=== PATIENT | female | born 1990 | race African-American/Black ===

== ENCOUNTER 2023-10-31 17:27 | Emergency (ER) | payer BC, MEDICAID ==
[~2023-10-31] VITALS: Ht 160 cm; Wt 81.6 kg
[2023-10-31 17:57] VITALS: BP 135/76; PULSE 82; RESP 14; TEMP 98.6; O2SAT 100
[2023-10-31 19:59] LABS: BASOPHILS % 0.9 % (0.0-2.0); EOSINOPHILS % 1.7 % (0.0-5.0); HEMATOCRIT. 40.9 % (36.0-48.0); LYMPHOCYTES % 48.1 % (20.0-50.0); MEAN CORPUSCULAR HEMOGLOBIN 31.6 pg (28.0-32.0); MEAN CORPUSCULAR HGB CONC 34.2 g/dL (31.0-37.0); MEAN CORPUSCULAR VOLUME 92.5 fL (81.0-99.0); MEAN PLATELET VOLUME 7.6 fl (7.4-10.4); MONOCYTES % 9.6 % (2.0-8.0); NEUTROPHILS % 39.7 % (40.0-76.0); PLATELET 428 x1000/uL (130-400); RED BLOOD CELL COUNT 4.43 mill/uL (4.2-5.4); RED CELL DISTRIBUTION WIDTH 12.6 % (11.6-14.6); WHITE BLOOD COUNT 6.9 x1000/uL (4.5-11.0)
[2023-10-31 20:14] LABS: ALANINE AMINOTRANSFERASE 35 IU/L (10-49); ALBUMIN 4.9 g/dL (3.2-4.8); ASPARTATE AMINOTRANSFERASE 22 IU/L (<34); BILIRUBIN TOTAL 0.2 mg/dL (0.1-1.0); CALCIUM 9.6 mg/dL (8.7-10.4); CARBON DIOXIDE 27 mEq/L (21-32); CHLORIDE 106 mEq/L (98-107); CREATININE 0.9 mg/dL (0.6-1.0); GLUCOSE 90 mg/dL (70-105); POTASSIUM 4.2 mEq/L (3.5-5.1); PROTEIN TOTAL 8.3 g/dL (6.0-8.3); SODIUM 139 mEq/L (136-145); UREA NITROGEN BLOOD 6 mg/dL (9-23)
[2023-10-31] MEDS: KETOROLAC 15MG/ML VIAL IM ONE (21:51)
[2023-10-31 22:03] LABS: CLARITY URINE CLOUDY (CLEAR); COLOR URINE YELLOW (YELLOW); GLUCOSE URINE NEGATIVE (NEGATIVE); KETONES URINE NEGATIVE (NEGATIVE); LEUKOCYTE ESTERASE URINE 1+ (NEGATIVE); NITRITE URINE NEGATIVE (NEGATIVE); OCCULT BLOOD URINE 3+ (NEGATIVE); PH URINE 5.5 (4.5-8.0); PROTEIN URINE TRACE (NEGATIVE); SPECIFIC GRAVITY URINE 1.018 (1.005-1.030); UROBILINOGEN URINE 0.2 E.U./dL (0.2-1.0)
[2023-10-31] MEDS ORDERED: LIDO700A15 TP (22:03)
[2023-10-31] MEDS ORDERED: NAPR-1176 MT (22:03)
[2023-10-31 22:22] LABS: BACTERIA URINE 2+; SQUAMOUS EPITHELIAL CELL URINE 2+ /lpf (RARE/1+)
== END 2023-10-31 22:22 | disposition home or self-care (01) ==
LOC: ER 17:27
DX: M54.9 Dorsalgia, unspecified (principal); K80.20 Calculus of gallbladder without cholecystitis without obstruction
CPT/HCPCS: 80053; 81003; 81025; 85025; 36415; 76705; 96372; 99285; J1885; Z7610

== ENCOUNTER 2024-05-28 21:34 | Emergency (ER) | payer BC, MEDICAID ==
[~2024-05-28] VITALS: Ht 160 cm; Wt 82.0 kg
[~2024-05-28 21:34] MED LIST: LIDO700A15 TP; NAPR-1176 MT
[2024-05-28 21:46] VITALS: O2SAT 100
[2024-05-28] MEDS ORDERED: MORPHINE SULFATE 4 MG/ML INJ (FOR IV/IM USE) IV STA (21:57)
[2024-05-28 22:26] VITALS: TEMP 37.11408
[2024-05-28] MEDS: SODIUM CHLORIDE 0.9% 1,000 ML IV ONE (22:27)
[2024-05-28 22:53] LABS: CLARITY URINE TURBID (CLEAR); COLOR URINE YELLOW (YELLOW); GLUCOSE URINE NEGATIVE (NEGATIVE); KETONES URINE NEGATIVE (NEGATIVE); LEUKOCYTE ESTERASE URINE NEGATIVE (NEGATIVE); NITRITE URINE NEGATIVE (NEGATIVE); OCCULT BLOOD URINE NEGATIVE (NEGATIVE); PH URINE 8.5 (4.5-8.0); PROTEIN URINE NEGATIVE (NEGATIVE); SPECIFIC GRAVITY URINE 1.016 (1.005-1.030); UROBILINOGEN URINE 0.2 E.U./dL (0.2-1.0)
[2024-05-28 23:06] LABS: AMORPHOUS SEDIMENT URINE 2+ /lpf; BACTERIA URINE 3+; RBC URINE 0-2 /hpf (0-2); SQUAMOUS EPITHELIAL CELL URINE 1+ /lpf (RARE/1+); WBC URINE 0-2 /hpf (0-2)
[2024-05-28] MEDS ORDERED: ONDANSETRON HCL 4MG/2ML INJ IV NR (23:30)
[2024-05-28 23:34] LABS: EOSINOPHILS % 0.8 % (0.0-5.0); HEMATOCRIT. 39.3 % (36.0-48.0); HEMOGLOBIN. 13.3 g/dL (12.0-16.0); LYMPHOCYTES % 21.7 % (20.0-50.0); MEAN CORPUSCULAR HGB CONC 33.7 g/dL (31.0-37.0); MEAN CORPUSCULAR VOLUME 94.8 fL (81.0-99.0); MEAN PLATELET VOLUME 7.8 fl (7.4-10.4); MONOCYTES % 8.6 % (2.0-8.0); NEUTROPHILS % 67.9 % (40.0-76.0); PLATELET 363 x1000/uL (130-400); RED BLOOD CELL COUNT 4.15 mill/uL (4.2-5.4); RED CELL DISTRIBUTION WIDTH 12.8 % (11.6-14.6); WHITE BLOOD COUNT 7.3 x1000/uL (4.5-11.0)
[2024-05-28 23:46] LABS: CHLORIDE 104 mEq/L (98-107); POTASSIUM 3.9 mEq/L (3.5-5.1); SODIUM 138 mEq/L (136-145)
[2024-05-28 23:47] LABS: CALCIUM 9.8 mg/dL (8.7-10.4); CARBON DIOXIDE 29 mEq/L (21-32)
[2024-05-28 23:51] LABS: HCG SCREEN NEGATIVE
[2024-05-28 23:52] LABS: CREATININE 0.9 mg/dL (0.6-1.0); GLUCOSE 120 mg/dL (70-105); UREA NITROGEN BLOOD 11 mg/dL (9-23)
[2024-05-28 23:53] LABS: ALANINE AMINOTRANSFERASE 32 IU/L (10-49); ASPARTATE AMINOTRANSFERASE 18 IU/L (<34)
[2024-05-28 23:54] LABS: ALBUMIN 4.7 g/dL (3.2-4.8); BILIRUBIN TOTAL 0.2 mg/dL (0.1-1.0); PROTEIN TOTAL 7.5 g/dL (6.0-8.3)
[2024-05-28 23:59] LABS: BILIRUBIN DIRECT < 0.1 mg/dL (<=3.0)
[2024-05-29 00:15] VITALS: BP 144/97; PULSE 99; RESP 16; O2SAT 100
[2024-05-29] MEDS: ONDANSETRON HCL 4MG/2ML INJ IV STA (00:17)
[2024-05-29] MEDS: MORPHINE SULFATE 4 MG/ML INJ (FOR IV/IM USE) IV NR (00:17)
[2024-05-29] MEDS ORDERED: ONDA-239 PO (00:18)
[2024-05-29] MEDS ORDERED: HYDR-4001 MT (00:18)
== END 2024-05-29 00:47 | disposition home or self-care (01) ==
LOC: ER 21:34
DX: K80.70 Calculus of gallbladder and bile duct without cholecystitis without obstruction (principal); Z79.899 Other long term (current) drug therapy
CPT/HCPCS: 80076; 80048; 81003; 84703; 83690; 85025; 36415; 76705; 96361; 99285; 96374; 96375; J7030; Z7610 ×3; J2405; J2270

== ENCOUNTER 2024-11-17 23:55 | Emergency (ER) | payer BC, MEDICAID ==
[~2024-11-17] VITALS: Ht 160 cm; Wt 82.0 kg
[~2024-11-17 23:55] MED LIST changes: +HYDR-4001 MT; +LIDO-53 TP; -LIDO700A15 TP; +ONDA-239 PO
[2024-11-18 00:30] VITALS: TEMP 36.9; O2SAT 98
[2024-11-18 00:34] LABS: BASOPHILS % 1.4 % (0.0-2.0); EOSINOPHILS % 2.2 % (0.0-5.0); HEMOGLOBIN. 13.4 g/dL (12.0-16.0); LYMPHOCYTES % 44.2 % (20.0-50.0); MEAN CORPUSCULAR HEMOGLOBIN 31.7 pg (28.0-32.0); MEAN CORPUSCULAR HGB CONC 35.2 g/dL (31.0-37.0); MEAN CORPUSCULAR VOLUME 90.1 fL (81.0-99.0); MEAN PLATELET VOLUME 7.7 fl (7.4-10.4); MONOCYTES % 8.7 % (2.0-8.0); NEUTROPHILS % 43.5 % (40.0-76.0); PLATELET 440 x1000/uL (130-400); RED BLOOD CELL COUNT 4.21 mill/uL (4.2-5.4); RED CELL DISTRIBUTION WIDTH 12.8 % (11.6-14.6); WHITE BLOOD COUNT 6.4 x1000/uL (4.5-11.0)
[2024-11-18 00:50] LABS: CHLORIDE 109 mEq/L (98-107); POTASSIUM 3.8 mEq/L (3.5-5.1); SODIUM 140 mEq/L (136-145)
[2024-11-18 00:51] LABS: CARBON DIOXIDE 25 mEq/L (21-32)
[2024-11-18 00:56] LABS: CREATININE 0.8 mg/dL (0.6-1.0); GLUCOSE 105 mg/dL (70-105); UREA NITROGEN BLOOD 9 mg/dL (9-23)
[2024-11-18 00:58] LABS: ALANINE AMINOTRANSFERASE 28 IU/L (10-49); ALBUMIN 4.4 g/dL (3.2-4.8); ASPARTATE AMINOTRANSFERASE 16 IU/L (<34); BILIRUBIN DIRECT 0.1 mg/dL (<=3.0); BILIRUBIN TOTAL 0.4 mg/dL (0.1-1.0); PROTEIN TOTAL 7.1 g/dL (6.0-8.3)
[2024-11-18] MEDS: FAMOTIDINE 20MG TABLET PO ONE (01:20)
[2024-11-18] MEDS: MAGNESIUM/ALUMINUM HYDROXIDE/SIMETHICONE 30ML UDC PO STA (01:20)
[2024-11-18 01:21] VITALS: BP 135/84; PULSE 87; RESP 16
[2024-11-18] MEDS: ACETAMINOPHEN 325MG TABLET PO STA (01:21)
[2024-11-18] MEDS: HYDROCODONE/ACETAMINOPHEN 5/325MG TABLET PO ONE (01:21)
[2024-11-18 02:53] LABS: HCG SCREEN NEGATIVE
[2024-11-18] MEDS ORDERED: IBUP-2030 MT (02:56)
[2024-11-18] MEDS: METRONIDAZOLE 500 MG PREMIX 100 ML IV ONE (03:56)
[2024-11-18] MEDS: CEFTRIAXONE 1GM/50ML 50 ML IV ONE (03:56)
== END 2024-11-18 04:05 | disposition home or self-care (01) ==
LOC: EDBD → ER 23:55
DX: K80.20 Calculus of gallbladder without cholecystitis without obstruction (principal); Z79.1 Long term (current) use of non-steroidal anti-inflammatories (NSAID)
CPT/HCPCS: 36415; 76705; 80053; 80076; 84703; 85025; 99284

== ENCOUNTER 2024-12-07 01:01 | Emergency (ER) | payer MEDICAID ==
[~2024-12-07] VITALS: Ht 160 cm; Wt 83.0 kg
[~2024-12-07 01:01] MED LIST changes: +IBUP-2030 MT
[2024-12-07 02:27] VITALS: O2SAT 99
[2024-12-07 03:19] LABS: CLARITY URINE CLOUDY (CLEAR); COLOR URINE YELLOW (YELLOW); GLUCOSE URINE NEGATIVE (NEGATIVE); KETONES URINE TRACE (NEGATIVE); LEUKOCYTE ESTERASE URINE 1+ (NEGATIVE); NITRITE URINE NEGATIVE (NEGATIVE); OCCULT BLOOD URINE NEGATIVE (NEGATIVE); PROTEIN URINE NEGATIVE (NEGATIVE); SPECIFIC GRAVITY URINE 1.024 (1.005-1.030); UROBILINOGEN URINE 0.2 E.U./dL (0.2-1.0)
[2024-12-07 04:00] LABS: RBC URINE 0-2 /hpf (0-2); SQUAMOUS EPITHELIAL CELL URINE FEW /lpf (RARE/1+)
[2024-12-07 04:01] LABS: BACTERIA URINE NONE SEEN
[2024-12-07 04:13] LABS: BASOPHILS % 1.7 % (0.0-2.0); EOSINOPHILS % 3.3 % (0.0-5.0); HEMATOCRIT. 40.5 % (36.0-48.0); HEMOGLOBIN. 13.6 g/dL (12.0-16.0); LYMPHOCYTES % 54.7 % (20.0-50.0); MEAN CORPUSCULAR HEMOGLOBIN 30.5 pg (28.0-32.0); MEAN CORPUSCULAR HGB CONC 33.5 g/dL (31.0-37.0); MEAN CORPUSCULAR VOLUME 91.1 fL (81.0-99.0); MEAN PLATELET VOLUME 7.6 fl (7.4-10.4); MONOCYTES % 8.8 % (2.0-8.0); NEUTROPHILS % 31.5 % (40.0-76.0); PLATELET 419 x1000/uL (130-400); RED BLOOD CELL COUNT 4.45 mill/uL (4.2-5.4); WHITE BLOOD COUNT 6.1 x1000/uL (4.5-11.0)
[2024-12-07 04:21] LABS: CHLORIDE 108 mEq/L (98-107); POTASSIUM 3.8 mEq/L (3.5-5.1); SODIUM 141 mEq/L (136-145)
[2024-12-07 04:22] LABS: CARBON DIOXIDE 27 mEq/L (21-32)
[2024-12-07 04:23] LABS: CALCIUM 9.5 mg/dL (8.7-10.4)
[2024-12-07 04:25] LABS: HCG SCREEN NEGATIVE
[2024-12-07 04:27] LABS: CREATININE 0.9 mg/dL (0.6-1.0); GLUCOSE 93 mg/dL (70-105); UREA NITROGEN BLOOD 7 mg/dL (9-23)
[2024-12-07 04:29] LABS: ALANINE AMINOTRANSFERASE 18 IU/L (10-49); ALBUMIN 4.5 g/dL (3.2-4.8); ASPARTATE AMINOTRANSFERASE 11 IU/L (<34)
[2024-12-07 04:30] LABS: BILIRUBIN DIRECT < 0.1 mg/dL (<=3.0); BILIRUBIN TOTAL 0.3 mg/dL (0.1-1.0)
[2024-12-07] MEDS ORDERED: ONDA4TAB50 MT (04:49)
[2024-12-07] MEDS: KETOROLAC 15MG/ML VIAL IM ONE (05:14)
[2024-12-07] MEDS: ONDANSETRON HCL 4MG TABLET PO ONE (05:14)
[2024-12-07 05:16] VITALS: BP 130/79; PULSE 84; RESP 18; TEMP 36.8; O2SAT 99
== END 2024-12-07 05:30 | disposition home or self-care (01) ==
LOC: EDBD 01:01 → ER 01:01
DX: K80.20 Calculus of gallbladder without cholecystitis without obstruction (principal); Z79.1 Long term (current) use of non-steroidal anti-inflammatories (NSAID)
CPT/HCPCS: 99285; 76705; 80076; 80048; 81003; 84703; 83690; 85025; 36415; 96372; J1885; Q0162

== ENCOUNTER 2024-12-30 23:06 | Emergency (ER) | payer MEDICAID ==
[~2024-12-30] VITALS: Ht 160 cm; Wt 86.0 kg
[~2024-12-30 23:06] MED LIST changes: +ONDA4TAB50 MT
[2024-12-30 23:15] VITALS: O2SAT 100
[2024-12-31 00:09] LABS: BASOPHILS % 0.8 % (0.0-2.0); EOSINOPHILS % 2.5 % (0.0-5.0); HEMATOCRIT. 37.5 % (36.0-48.0); LYMPHOCYTES % 37.9 % (20.0-50.0); MEAN CORPUSCULAR HEMOGLOBIN 31.5 pg (28.0-32.0); MEAN CORPUSCULAR HGB CONC 34.6 g/dL (31.0-37.0); MEAN CORPUSCULAR VOLUME 90.8 fL (81.0-99.0); MEAN PLATELET VOLUME 7.7 fl (7.4-10.4); MONOCYTES % 8.5 % (2.0-8.0); NEUTROPHILS % 50.3 % (40.0-76.0); PLATELET 403 x1000/uL (130-400); RED BLOOD CELL COUNT 4.13 mill/uL (4.2-5.4); RED CELL DISTRIBUTION WIDTH 13.5 % (11.6-14.6); WHITE BLOOD COUNT 6.5 x1000/uL (4.5-11.0)
[2024-12-31 00:26] LABS: CHLORIDE 108 mEq/L (98-107); POTASSIUM 3.7 mEq/L (3.5-5.1); SODIUM 140 mEq/L (136-145)
[2024-12-31 00:27] LABS: CARBON DIOXIDE 24 mEq/L (21-32)
[2024-12-31 00:28] LABS: CALCIUM 9.6 mg/dL (8.7-10.4)
[2024-12-31 00:32] LABS: GLUCOSE 114 mg/dL (70-105)
[2024-12-31 00:33] LABS: UREA NITROGEN BLOOD 13 mg/dL (9-23)
[2024-12-31 00:34] LABS: ALANINE AMINOTRANSFERASE 18 IU/L (10-49); ALBUMIN 4.5 g/dL (3.2-4.8); ASPARTATE AMINOTRANSFERASE 13 IU/L (<34)
[2024-12-31 00:35] LABS: BILIRUBIN DIRECT < 0.1 mg/dL (<=3.0); BILIRUBIN TOTAL 0.3 mg/dL (0.1-1.0); PROTEIN TOTAL 7.1 g/dL (6.0-8.3)
[2024-12-31 00:58] LABS: CLARITY URINE CLEAR (CLEAR); COLOR URINE YELLOW (YELLOW); GLUCOSE URINE NEGATIVE (NEGATIVE); KETONES URINE NEGATIVE (NEGATIVE); LEUKOCYTE ESTERASE URINE TRACE (NEGATIVE); NITRITE URINE NEGATIVE (NEGATIVE); OCCULT BLOOD URINE 2+ (NEGATIVE); PH URINE 6.5 (4.5-8.0); PROTEIN URINE NEGATIVE (NEGATIVE); SPECIFIC GRAVITY URINE 1.025 (1.005-1.030); UROBILINOGEN URINE 0.2 E.U./dL (0.2-1.0)
[2024-12-31 01:01] LABS: HCG SCREEN NEGATIVE
[2024-12-31] MEDS: ONDANSETRON HCL 4MG/2ML INJ IM ONE (01:12)
[2024-12-31] MEDS: KETOROLAC 30MG/ML VIAL IM ONE (01:12)
[2024-12-31] MEDS: DICYCLOMINE HCL 10MG/ML 2ML VIAL IM ONE (01:13)
[2024-12-31] MEDS ORDERED: METRONIDAZOLE 500 MG PREMIX 100 ML IV ONE (01:30)
[2024-12-31] MEDS: CEFTRIAXONE 1GM/50ML 50 ML IV ONE (02:02)
[2024-12-31] MEDS: SODIUM CHLORIDE 0.9% 1,000 ML IV ONE (02:02)
[2024-12-31] MEDS: MORPHINE SULFATE 2 MG/ML INJ (NOT FOR IM USE) IV ONE (02:09)
[2024-12-31] MEDS ORDERED: IOHEXOL-300 100 ML BOTTLE ONE (03:27)
[2024-12-31 03:30] LABS: SQUAMOUS EPITHELIAL CELL URINE 1+ /lpf (RARE/1+)
[2024-12-31 03:32] LABS: RBC URINE 15-25 /hpf (0-2); WBC URINE 0-2 /hpf (0-2)
[2024-12-31 03:33] LABS: BACTERIA URINE NONE SEEN
[2024-12-31 04:30] VITALS: BP 116/74; PULSE 60; RESP 17; TEMP 36.5; O2SAT 99
== END 2024-12-31 04:54 | disposition home or self-care (01) ==
LOC: ER 23:06
DX: K80.20 Calculus of gallbladder without cholecystitis without obstruction (principal); Z79.1 Long term (current) use of non-steroidal anti-inflammatories (NSAID); Z79.899 Other long term (current) drug therapy
CPT/HCPCS: 80076; 80048; 81003; 84703; 83690; 85025; 36415; 99285; 87040; 74177; 76705; 96365; 96372; Q9967; J0696; J0500; J1885; J2405; J7030; Z7610 ×3; J2270